=== PATIENT | female | born 1955 | race Caucasian/White ===

== ENCOUNTER → 2016-11-18 | Outpatient (CLI) | payer BC ==
[~2016-11-18] VITALS: Ht 166.4 cm; Wt 169.9 kg
[~2016-11-18] MED LIST: BENICAR 20MG TA20 MG PO; CELEBREX 200MG200 MG PO; GLUCOVANCE 5 MG1 TAB PO; HCTZ 25MG TAB25 MG PO; JARDIANCE25 PO; SYNTHROID0.1 MG/TAB PO; TYLENOL PM EXTR1 TA1 PO; VICTOZA6 MG/ML SQ
[2016-11-18 11:25] VITALS: BP 135/57; PULSE 81
[2016-11-18 11:44] VITALS: BP 135/57; PULSE 81
== END ==
LOC: LIGHT 11:00
DX: E88.81 Metabolic syndrome and other insulin resistance (principal); E11.8 Type 2 diabetes mellitus with unspecified complications; E66.01 Morbid (severe) obesity due to excess calories; Z68.44 Body mass index [BMI] 60.0-69.9, adult; I10 Essential (primary) hypertension

== ENCOUNTER → 2016-12-23 | Outpatient (CLI) | payer BC ==
[~2016-12-23] VITALS: Ht 166.4 cm; Wt 171.0 kg
[2016-12-23 10:50] VITALS: BP 136/60; PULSE 80
[2016-12-23 11:16] VITALS: BP 136/60; PULSE 80
== END ==
LOC: LIGHT 12-16 14:04
DX: E88.81 Metabolic syndrome and other insulin resistance (principal); E11.8 Type 2 diabetes mellitus with unspecified complications; I10 Essential (primary) hypertension; E66.01 Morbid (severe) obesity due to excess calories; Z68.44 Body mass index [BMI] 60.0-69.9, adult

== ENCOUNTER → 2017-02-08 | Outpatient (CLI) | payer BC | LOC: BHSO 09:00 | DX: Z01.818 Encounter for other preprocedural examination (principal) ==

== ENCOUNTER → 2017-10-21 | Outpatient (CLI) | payer BC ==
[~2017-10-21] VITALS: Ht 171.4 cm; Wt 149.9 kg
== END ==
LOC: SUN.DIA 11:19 → SUN.CLI 11:19
DX: Z98.84 Bariatric surgery status (principal)

== ENCOUNTER → 2018-02-14 | Outpatient (CLI) | payer BC | LOC: COL.RAD 10:30 | DX: R22.1 Localized swelling, mass and lump, neck (principal) ==

== ENCOUNTER 2019-12-07 08:41 | Emergency (ER) | payer BC ==
[~2019-12-07] VITALS: Ht 170.2 cm; Wt 140.0 kg
[2019-12-07 08:47] VITALS: BP 146/82; PULSE 73; TEMP 97.4
[2019-12-07] MEDS ORDERED: NEURONTIN300 MG/CAP PO (08:53)
[2019-12-07] MEDS ORDERED: PARLODEL 2.5MG2.5 MG PO (08:54)
[2019-12-07] MEDS ORDERED: NORCO 325 MG-51 TAB PO (10:18)
== END 2019-12-07 10:53 | disposition home or self-care (01) ==
LOC: COL.ER 08:41
DX: S43.402A Unspecified sprain of left shoulder joint, initial encounter (principal); Z88.0 Allergy status to penicillin; W01.119A Fall on same level from slipping, tripping and stumbling with subsequent striking against unspecified sharp object, initial encounter

== ENCOUNTER → 2020-09-02 | Outpatient (CLI) | payer BC ==
[~2020-09-02] MED LIST changes: +NEURONTIN300 MG/CAP PO; +NORCO 325 MG-51 TAB PO; +PARLODEL 2.5MG2.5 MG PO
== END ==
LOC: MC.RAD 08-19 13:00
DX: Z12.31 Encounter for screening mammogram for malignant neoplasm of breast (principal)

== ENCOUNTER 2021-10-29 09:00 | Outpatient (RCR) | payer MEDICARE | END 2021-10-30 | disposition home or self-care (01) | LOC: WSPT | DX: M17.0 Bilateral primary osteoarthritis of knee (principal) ==

== ENCOUNTER 2023-08-12 10:33 | Emergency (ER) | payer MEDICARE ==
[~2023-08-12] VITALS: Ht 167.6 cm; Wt 153.6 kg
[2023-08-12 13:56] VITALS: BP 151/98; PULSE 71; TEMP 97.8
== END 2023-08-12 13:34 | disposition home or self-care (01) ==
LOC: COL.ER 10:33
DX: S62.307A Unspecified fracture of fifth metacarpal bone, left hand, initial encounter for closed fracture (principal); S05.12XA Contusion of eyeball and orbital tissues, left eye, initial encounter; S80.02XA Contusion of left knee, initial encounter; Z91.040 Latex allergy status; W01.0XXA Fall on same level from slipping, tripping and stumbling without subsequent striking against object, initial encounter; Y93.K1 Activity, walking an animal